=== PATIENT | female | born 1935 | race Caucasian/White ===

== ENCOUNTER → 2018-08-03 | Outpatient (CLI) | payer OTHER ==
[~2018-08-03] MED LIST: REGADENOSON 0.4 MG/5 ML DISP.SYRIN. IV ONE
--- NOTE | 2018-08-05 13:23 | PCVCIMAG ---
APPROVED REPORT Imaging Protocol: Rest Tc-99m/Stress Tc-99m 1 day Study performed: 08/03/2018 08:57:55 Indication: Abnormal EKG, Pre-Operative CV evaluation Patient Location: Out-Patient Stress Nurse: Karen Frazier RN, Debra Reinoso RN [place] Tech:Alie EN MéndezMT Ht: 5 ft 4 in Wt: 140 lbs BSA: 1.68 m2 HR: 59 bpm BP: 175/79 mmHg BMI: 24.0 Rhythm: Bradycardia Medical History Medical History: HTN, Hyperlipidemia, CVD Medications: Lisinopril, Metoprolol, Simvastatin, Clopidogrel Allergies: PCN, Codeine, Sulfa Cardiac Risk Factors: Age Pretest Chest Pain Characteristics: No chest pain Exercise History: Sedentary Physical Disabilities: Back Meds Held (24 hrs): Metoprolol Resting Data Rest SPECT myocardial perfusion imaging was performed in supine position 45 minutes following the intravenous injection of 10.7 mCi of Tc-99m Sestamibi. Time of rest injection: 0845 Date: 08/03/2018 Administration Route: IV Administration Site: Right AC Pharmacologic Stress Pharmacologic stress test was performed by injecting Regadenoson 0.4 mg IV push over 10-15 seconds immediately followed by the intravenous injection of 32.5 mCi of Tc-99m Sestamibi. Time of stress injection: 1020 Date: 08/03/2018 Administration Route: IV Administration Site: Right AC Gated Stress SPECT was performed 45 minutes after stress injection. The images were gated to evaluate regional wall motion and calculate left ventricular ejection fraction. Stress Test Details Stress Test: Pharmacologic stress testing performed using 0.4 mg of regadenoson per 5 mL given IV over 10 seconds. Reason for pharmacologic stress test: back problems. HRMax Heart Rate (APMHR): 138 bpm Resting HR: 59 bpmTarget HR (85% APMHR): 117 bpm Max HR Achieved: 85 bpm % of APMHR: 61 Recovery HR: 81 bpm BP Resting BP: 175/79 mmHg Max BP: 155/68 mmHg Recovery BP: 143/65 mmHg ECG Resting ECG: Sinus Bradycardia Stress ECG: Sinus Rhythm ST Change: None Maximum ST Deviation: 0 mm Arrhythmia: None Recovery ECG: Sinus Rhythm Recovery ST Change: None Recovery ST Deviation: 0 mm Recovery Arrhythmia: None Clinical Reason for Termination: Completed protocol Stress Symptoms: Chest Pressure Exercise duration: 0 min 55 sec Symptoms resolved with caffeine. Stress ECG Conclusion Clinical: Non-ischemic ECG: Non-ischemic Study Quality Study: Good Study Data Post stress, the left ventricular ejection was 81%.. SSS: 0 SRS: 8 SDS: 0 TID = 0.71. Perfusion No evidence of stress induced ischemia or prior myocardial infarction. Wall Motion Normal left ventricular size and function with no regional wall motion abnormalities. Nuclear Conclusion No evidence of stress induced ischemia or prior myocardial infarction. Normal left ventricular size and function with no regional wall motion abnormalities. Post stress, the left ventricular ejection was 81%. No prior study available for comparison. Interpreted by: Jimmy Jeffries MD Electronically Approved: 08/03/2018 16:36:13 <Conclusion> Clinical: Non-ischemic ECG: Non-ischemic
== END | disposition home or self-care (01) ==
LOC: PCVCIMAG 08:23
PROVIDERS: ATTEND Internal Medicine
DX: Z01.818 Encounter for other preprocedural examination (principal); I10 Essential (primary) hypertension; R94.31 Abnormal electrocardiogram [ECG] [EKG]; E78.5 Hyperlipidemia, unspecified
CPT/HCPCS: 78452; 93017; A9500; J2785

== ENCOUNTER → 2018-08-09 | Outpatient (CLI) | payer OTHER | END | disposition home or self-care (01) | LOC: PCVCCLINIC 10:00 | PROVIDERS: ATTEND Internal Medicine | DX: I12.9 Hypertensive chronic kidney disease with stage 1 through stage 4 chronic kidney disease, or unspecified chronic kidney disease (principal); N18.3 Chronic kidney disease, stage 3 (moderate); R93.1 Abnormal findings on diagnostic imaging of heart and coronary circulation; E78.5 Hyperlipidemia, unspecified; I65.23 Occlusion and stenosis of bilateral carotid arteries | CPT/HCPCS: 93005; G0463 ==

== ENCOUNTER → 2018-08-09 | Outpatient (CLI) | payer OTHER ==
--- NOTE | 2018-08-09 12:32 | PCVCIMAG ---
APPROVED REPORT Indications Stenosis Risk Factors Hypertension: TIA/CVA History Hyperlipidemia Doppler Spectral Velocity Analysis PSV / EDVPSV / EDV ECA (R) 255 / 16 cm/sECA (L) 86 / 7 cm/s dICA (R) 0 / 0 cm/sdICA (L) 99 / 26 cm/s Orin (R) 0 / 0 cm/smICA (L) 133 / 41 cm/s pICA (R) 0 / 0 cm/spICA (L) 87 / 21 cm/s Bulb (R) 369 / 20 cm/sBulb (L) 91 / 20 cm/s dCCA (R) 30 / 0 cm/sdCCA (L) 80 / 15 cm/s mCCA (R) 31 / 0 cm/smCCA (L) 103 / 21 cm/s Vert (R) 41 / 9 cm/sVert (L) 45 / 12 cm/s ICA/CCA 0.00ICA/CCA 1.66 Basic Measurements Blood Pressure: Pulses: Right Left RightLeft Brachial(Sitting) 134/09bmLs076/92mmHgTemporal Real Time B-Mode Imaging Vert. (R)AntegradeVert. (L)Antegrade Findings The right carotid bulb has moderately severe plaque. The right proximal internal carotid artery shows complete occlusion. The right common carotid artery shows no significant stenosis. The right external carotid artery shows >90% stenosis. The left carotid bulb has no significant plaque. The left proximal internal carotid artery shows <40% stenosis. The left common carotid artery shows no significant stenosis. The left external carotid artery shows no significant stenosis. Conclusion 1. Chronic right internal carotid artery occlusion 2. Left internal carotid artery stenosis (<40%) 3. Antegrade vertebral flow
== END | disposition home or self-care (01) ==
LOC: PCVCIMAG 11:00
PROVIDERS: ATTEND Internal Medicine
DX: I10 Essential (primary) hypertension (principal); I65.23 Occlusion and stenosis of bilateral carotid arteries; E78.5 Hyperlipidemia, unspecified; Z86.73 Personal history of transient ischemic attack (TIA), and cerebral infarction without residual deficits
CPT/HCPCS: 93880